=== PATIENT | male | born 1955 ===

== ENCOUNTER 2017-05-30 08:08 | Emergency (ER) | payer BC, OTHER ==
--- NOTE | 2017-05-30 09:36 | UC ---
Respiratory Complaint HPI - HPI Summary HPI Summary: 4 DAYS OF COUGH, CONGESTION, FATIGUE, MALAISE GETTING WORSE. LAST 2 DAYS DEVELOPED FEVER TMAX 101. NO N/V/D. NO FLU SHOT THIS SEASON. - History of Current Complaint Chief Complaint: UCRespiratory Stated Complaint: COUGH Time Seen by Provider: 05/30/17 09:22 Hx Obtained From: Patient Onset/Duration: Gradual Onset, Lasting Days, Still Present Pain Intensity: 4 Pain Scale Used: 0-10 Numeric Character: Cough: Nonproductive Aggravating Factors: Deep Breaths, Recumbent Position Alleviating Factors: Nothing Associated Signs And Symptoms: Positive: Fever, Chills, URI, Nasal Congestion - Allergies/Home Medications Allergies/Adverse Reactions: Allergies Allergy/AdvReac Type Severity Reaction Status Date / Time No Known Allergies Allergy Verified 05/30/17 08:16 Home Medications: Home Medications Zolpidem TAB* [Ambien*] 10 mg PO BEDTIME PRN 05/30/17 [History Confirmed ] PMH/Surg Hx/FS Hx/Imm Hx Previously Healthy: Yes - Surgical History Surgical History: Yes Surgery Procedure, Year, and Place: cyst removed - Family History Known Family History: Positive: Hypertension - Social History Alcohol Use: None Substance Use Type: None Smoking Status (MU): Never Smoked Tobacco Review of Systems Constitutional: Fever, Chills, Fatigue ENT: Sore Throat, Nasal Discharge Respiratory: Shortness Of Breath, Cough Cardiovascular: Negative Gastrointestinal: Negative Musculoskeletal: Myalgia All Other Systems Reviewed And Are Negative: Yes Physical Exam Triage Information Reviewed: Yes Appearance: No Pain Distress, Well-Nourished, Ill-Appearing - MILDLY Vital Signs: Initial Vital Signs Temp 99 F 05/30/17 08:18 Pulse 78 05/30/17 08:18 Resp 18 05/30/17 08:18 BP 131/81 05/30/17 08:18 Pulse Ox 98 05/30/17 08:18 Vital Signs Reviewed: Yes Eyes: Positive: Conjunctiva Clear ENT: Positive: Hearing grossly normal, Pharynx normal, Nasal congestion, TMs normal Neck: Positive: Supple, Nontender, No Lymphadenopathy Respiratory Exam: Normal Cardiovascular Exam: Normal Abdomen Description: Positive: Soft Musculoskeletal: Positive: No Edema Neurological: Positive: Alert Psychological: Positive: Age Appropriate Behavior Skin: Negative: rashes UC Diagnostic Evaluation - Laboratory O2 Sat by Pulse Oximetry: 98 Diagnostic Studies Comment: FLU NEG - Radiology Xray Interpretation: No Acute Changes - CXR Radiology Interpretation Completed By: Radiologist Respiratory Course/Dx - Differential Dx/Diagnosis Provider Diagnoses: ACUTE BRONCHITIS Discharge - Discharge Plan Condition: Stable Disposition: HOME Prescriptions: Azithromycin 500 mg PO DAILY #5 tab Patient Education Materials: Acute Bronchitis (ED) Referrals: [facility] [Provider Group] - If Needed Additional Instructions: CHEST XRAY TODAY UNREMARKABLE. FLU SWAB NEGATIVE. YOUR SYMPTOMS MAY BE VIRALLY MEDIATED BUT GIVEN YOUR WORSENING COUGH AND FEVER WE WILL COVER YOU WITH ANTIBIOTICS. IF YOU START THE MEDICINE BE SURE TO TAKE IT FOR THE FULL COURSE. REST, HYDRATE, OTC MEDS NEEDED. SEEK FOLLOW-UP WITH YOUR PCP IF YOU ARE NOT IMPROVING OVER THE NEXT 1-2 WEEKS. TRY OTC AFRIN FOR NASAL CONGESTION. OKAY TO USE 2-3 SPRAYS IN EACH NOSTRIL UP TO 2 TIMES DAILY. DO NOT USE FOR MORE THAN 3-4 CONSECUTIVE DAYS TO PREVENT DEVELOPING REBOUND CONGESTION.
--- NOTE | 2017-05-30 10:03 | RAD ---
Indication: Cough, fever. 2 views of the chest including dual energy PA views demonstrate no mediastinal shift. Normal size and configuration. Lung winters are clear. IMPRESSION: No active cardiopulmonary disease is noted.
[2017-05-30 10:29] VITALS: BP 136/79
== END 2017-05-30 10:25 | disposition home or self-care (01) ==
LOC: UCEAST 08:08
DX: J20.9 Acute bronchitis, unspecified (principal)
CPT/HCPCS: 71046; 87502; 99202; G0463